=== PATIENT | female | born 1985 | race Caucasian/White ===

== ENCOUNTER → 2017-04-25 | Outpatient (REF) ==
[~2017-04-25] MED LIST: AMOXICILLIN; AMOXICILLIN 50500 MG PO; BIRTHCONTROL; DARVOCET-N-101 UDTAB PO; FLONASE NASAL S16 GM NS; FLONASE0.05 MG/AC NS; LORATADINE10 MG PO; LORTAB 5/500 501 TAB PO; NO HOME MEDICATIONS; NORCO 325 MG-51 TAB PO; PATANOL OPHTHALM5 ML OU; PEPCID 20MG TAB20 MG PO; PRENATAL VITAMI1 TA5 PO; ZOFRAN 4MG T4 MG/TAB PO; ZYRTEC 10MG; ZYRTEC10 MG PO
== END ==
LOC: WSOH 09:15
DX: Z00.00 Encounter for general adult medical examination without abnormal findings (principal)

== ENCOUNTER → 2017-05-05 | Outpatient (REF) | LOC: WSOH 13:24 | DX: Z02.89 Encounter for other administrative examinations (principal) ==

== ENCOUNTER 2020-10-27 00:53 | Outpatient (CLI) | payer BC ==
[~2020-10-27] VITALS: Ht 157.5 cm; Wt 75.0 kg
--- NOTE | 2020-10-27 01:05 | NUR ---
0105- PT PRESENTS TO LDR COMPLAINING OF NAUSEA, VOMITING, AND DIARHHEA WITH CRAMPING UPPER ABDOMINAL PAIN. AMBULATORY TO ROOM TRIAGE 1, CHANGED INTO GOWN. 0112- EFM X2 APPLIED. PT DENIES LEAKING FLUID, VAGINAL BLEEDING, CONTRACTIONS. STATES SHE IS FEELING BABY MOVE. STATES SHE ATE DINNER AT [facility] AND WENT TO BED FEELING FINE. THEN SHE WOKE UP WITH THE ABDOMINAL PAIN AND HAD SEVERAL LOOSE STOOLS. SHE SEES A [employer] DES[employer] IN [place] AND MFM AT . PT APPEARS TO BE UNCOMFORTABLE. PLAN OF CARE DISCUSSED AND QUESTIONS ANSWERED. 0118- PT UP TO BATHROOM, LOOSE STOOL. 0120- NURSING ADMISSION HISTORY AND ASSESSMENT COMPLETE. 0140- DR ACE CALLED CHARTED. ORDERS RECIEVED FOR LABS, MEDS, AND FLUIDS. 0145- IV START TO LEFT WRIST WITH 18G CHARTED. LR INFUSING.
[2020-10-27] MEDS ORDERED: PRENATAL VITAMI1 TA3 PO (01:29)
[2020-10-27 01:30] VITALS: BP 112/69; PULSE 95; TEMP 98.2
[2020-10-27] MEDS ORDERED: ASPIRIN 81M81 MG/TA2 PO (01:30)
[2020-10-27] MEDS ORDERED: NATURAL IRON65 MG (01:30)
[2020-10-27] MEDS ORDERED: PRILOSEC 20MG20 MG PO (01:31)
--- NOTE | 2020-10-27 02:12 | NUR ---
0212- MEDICATIONS GIVEN ORDERED. PT SITTING UP IN BED. SHE HAS BEEN UP TO BATHROOM AND HAD ANOTHER LOOSE STOOL. NO VOMITING SINCE BEING AT HOSPITAL.
[2020-10-27 02:16] LABS: BASO # 0.1 (0.0-0.2); BASO % 0.4 % (0.0-2.0); EOS # 0.1 (0.0-0.7); EOS % 0.4 % (0-4.0); GRAN # 10.9 (1.4-6.5); GRAN % 86.1 % (42.2-75.2); HEMATOCRIT 38.4 % (37.0-47.0); HEMOGLOBIN 12.4 g/dl (12.5-16.0); LYMPH # 0.6 (1.2-3.4); LYMPH % 4.7 % (20.0-51.0); MEAN CELL VOLUME 93 fl (80.0-100.0); MEAN CORPUSCULAR HEMOGLOBIN 30 pg (27.0-31.0); MEAN CORPUSCULAR HGB CONC 32 g/dl (33.0-37.0); MEAN PLATELET VOLUME 10.9 fl (7.4-10.4); MONO % 7.5 % (1.7-9.3); PLATELET COUNT 205 K/mm3 (130-400); RED BLOOD COUNT 4.14 M/mm3 (4.10-5.30); REDCELL DISTRIBUTION WIDTH-CV 12.9 % (11.5-14.5)
[2020-10-27 02:49] LABS: ALBUMIN 3.6 gm/dL (3.5-5.0); BILIRUBIN,TOTAL 0.3 mg/dL (0.0-1.0); CALCIUM 8.7 mg/dL (8.4-10.2); CREATININE, serum 0.47 (0.52-1.25); POTASSIUM 4.1 mmol/L (3.4-5.0); TOTAL PROTEIN 6.9 gm/dL (6.4-8.2)
--- NOTE | 2020-10-27 03:40 | NUR ---
0340- DR ACE CALLED CHARTED, ORDERS FOR MEDS AND CONTINUE LR. PT REPORTS FEELING SOME BETTER. 0510- PT STATES SHE FEELS BETTER. NO MORE N/V/D AT THIS TIME. STATES SHE FEELS THAT SHE COULD GO HOME. DR ACE CALLED AND UPDATED CHARTED. ORDERS FOR DISMISSAL RECEIVED. 0530- PT OFF MONITORS FOR DISSMISAL. IV SITE DC'D WITH [facility]A INTACT. 0545- DISMISSAL INSTRUCTIONS GIVEN. PT VERBALIZES UNDERSTANDING. PT DISMISSED TO HOME AMBULATORY ACCOMPANIED BY SELF.
[2020-10-27 04:32] LABS: MUCOUS Present /lpf; PH 6 (5-8); SQUAMOUS EPITHELIAL 0-2 /hpf; URINE APPEARANCE Clear; URINE BACTERIA Rare /hpf; URINE BILIRUBIN Negative (NEGATIVE); URINE BLOOD Negative (NEGATIVE); URINE COLOR Yellow; URINE GLUCOSE Negative (NEGATIVE); URINE KETONE Negative (NEGATIVE); URINE LEUKOCYTE ESTERASE Negative (NEGATIVE); URINE NITRATE Negative (NEGATIVE); URINE PROTEIN(semi-quant) Negative (NEGATIVE); URINE RBC 0-2 /hpf; URINE UROBILINOGEN Negative (NEGATIVE); URINE WBC 0-2 /hpf
[2020-10-27 04:38] LABS: COLLECTION METHOD CLEAN CATCH
== END 2020-10-27 05:45 | disposition home or self-care (01) ==
LOC: LDRO 00:53 → LDR 00:53 → LDRO 01:42
PROVIDERS: Student in an Organized Health Care Education/Training Program
DX: O21.9 Vomiting of pregnancy, unspecified (principal); O26.893 Other specified pregnancy related conditions, third trimester; R10.10 Upper abdominal pain, unspecified; R19.7 Diarrhea, unspecified; Z3A.32 32 weeks gestation of pregnancy
CPT/HCPCS: OP; C9113; J2405; J7120